=== PATIENT | female | born 1965 ===

== ENCOUNTER 2017-05-23 07:36 | Emergency (ER) | payer OTHER, SELFPAY ==
--- NOTE | 2017-05-23 08:49 | C.PDOC ---
History Of Present Illness 52 year old female presents to ED for evaluation of itchy rash to the chest, abdomen, and lower back for the last 5 days. Denies any new known exposure, difficulty breathing, chest pain, abdominal pain, n/v/d, or fever. Denies taking any medication for her symptoms. Time Seen by Provider: 05/23/17 07:57 Chief Complaint (Nursing): Abnormal Skin Integrity History Per: Patient History/Exam Limitations: no limitations Onset/Duration Of Symptoms: Days (5) Current Symptoms Are (Timing): Still Present Location Of Injury: Anterior: Abdomen, Chest, Posterior: Back Quality Of Symptoms: Itching Severity: None Pain Scale Rating Of: 0 Recent travel outside of the [place]: No Additional History Per: Patient Past Medical History Reviewed: Historical Data, Nursing Documentation, Vital Signs Vital Signs: Last Vital Signs Temp 98.3 F 05/23/17 09:05 Pulse 89 05/23/17 09:05 Resp 20 05/23/17 09:05 BP 139/88 05/23/17 09:05 Pulse Ox 96 05/23/17 09:05 - Medical History PMH: HTN Family History: States: Unknown Family Hx - Social History Hx Alcohol Use: No Hx Substance Use: No - Immunization History Hx Tetanus Toxoid Vaccination: Yes Hx Influenza Vaccination: Yes Hx Pneumococcal Vaccination: No Review Of Systems Except As Marked, All Systems Reviewed And Found Negative. Constitutional: Negative for: Fever, Chills ENT: Negative for: Throat Pain, Throat Swelling Cardiovascular: Negative for: Chest Pain, Palpitations Respiratory: Negative for: Cough, Shortness of Breath Gastrointestinal: Negative for: Nausea, Vomiting, Abdominal Pain, Diarrhea Musculoskeletal: Negative for: Back Pain Skin: Positive for: Rash Neurological: Negative for: Headache, Dizziness Physical Exam - Physical Exam Appears: Non-toxic, No Acute Distress Skin: Warm, Dry, Rash (diffuse urticaria to chest, abdomen, and lower back) Head: Atraumatic, Normacephalic Eye(s): bilateral: Normal Inspection Nose: Normal Oral Mucosa: Moist Tongue: Normal Appearing, No Swelling Lips: Normal Appearing, No Swelling Throat: Normal Neck: Normal ROM, Supple Chest: Symmetrical Cardiovascular: Rhythm Regular Respiratory: Normal Breath Sounds, No Accessory Muscle Use, No Rales, No Rhonchi , No Wheezing Gastrointestinal/Abdominal: Soft, No Tenderness Back: No Vertebral Tenderness, No Paraspinal Tenderness Extremity: Normal ROM, No Swelling Neurological/Psych: Oriented x3, Normal Speech ED Course And Treatment O2 Sat by Pulse Oximetry: 100 (RA) Pulse Ox Interpretation: Normal Medical Decision Making Medical Decision Making: Patient was given Prednisone. On re-michelle, patient is resting comfortably, tolerating PO, has no shortness of breath, has no intra-oral swelling, no stridor. Patient was advised to avoid potential allergens, and to follow up with physician in 1-2 days. Disposition - Disposition Referrals: [facility] Ashlee Ohara, [Non-Staff] - Disposition: HOME/ ROUTINE Disposition Time: 08:00 Condition: GOOD Additional Instructions: Thank you for letting us take care of you today. The emergency medical care you received today was directed at your acute symptoms. If you were prescribed any medication, please fill it and take as directed. It may take several days for your symptoms to resolve. Return to the Emergency Department if your symptoms worsen, do not improve, or if you have any other problems. Please contact your doctor or call one of the physicians/clinics you have been referred to that are listed on the Patient Visit Information form that is included in your discharge packet. Bring any paperwork you were given at discharge with you along with any medications you are taking to your follow up visit. Our treatment cannot replace ongoing medical care by a primary care provider (PCP) outside of the emergency department. Thank you for allowing the [facility] team to be part of your care today. Follow up with your primary doctor in 2-3 days for re-evaluation and further management. Radha por dejarnos atenderlo hoy. La atencin mdica de emergencia que recibi hoy estaba dirigida a christie sntomas agudos. Si le prescribieron algn medicamento, llnelo y tome segn las indicaciones. Christie sntomas pueden tardar varios martinez en resolverse. Regrese al Departamento de Emergencia si christie s ntomas empeoran, no mejoran o si tiene algn otro problema. Comunquese con rivas mdico o llame a [place] de los mdicos / clnicas a los que malave sido referido que figura en el formulario de Informacin de visita del paciente que se incluye en rivas paquete de [place]. Traiga todos los documentos que recibi al momento del burke junto con los medicamentos que est tomando en rivas visita de seguimiento. Nuestro tratamiento no puede reemplazar la atencin mdica en curso por parte de un proveedor de atencin primaria (PCP) fuera del departamento de emergencias. Radha por permitir que el equipo de [facility] sea parte de rivas cuidado hoy. Ame un seguimiento con rivas mdico de cabecera en 2-3 martinez para michelle reevaluacin y michelle administracin posterior. Prescriptions: predniSONE [Prednisone] 40 mg PO DAILY #10 tab Instructions: Urticaria (ED) Forms: Gen Discharge Inst Angolan, Work Excuse Print Language: MOSOTHO - Clinical Impression Clinical Impression: Rash - Scribe Statement The provider has reviewed the documentation as recorded by the Scribe Wendie Garza All medical record entries made by the Scribe were at my direction and personally dictated by me. I have reviewed the chart and agree that the record accurately reflects my personal performance of the history, physical exam, medical decision making, and the department course for this patient. I have also personally directed, reviewed, and agree with the discharge instructions and disposition.
[2017-05-23 09:13] VITALS: BP 139/88; PULSE 89; RESP 20; TEMP 98.3
[2017-05-23 17:59] VITALS: O2SAT 100
== END 2017-05-23 09:05 | disposition home or self-care (01) ==
LOC: C.ER 07:36 → MERGE 07:36 → C.ER 09:05
DX: R21 Rash and other nonspecific skin eruption (principal)